=== PATIENT | male | born 1985 | race African-American/Black ===

== ENCOUNTER 2018-05-08 21:45 | Emergency (ER) | payer OTHER, SELFPAY ==
[2018-05-08 21:53] VITALS: BP 153/87; PULSE 130; RESP 20; TEMP 37.1; O2SAT 97
[2018-05-08 22:52] VITALS: BP 153/87; PULSE 130; RESP 20; TEMP 37.1; O2SAT 97
[2018-05-08 23:24] VITALS: BP 128/71; PULSE 125; RESP 20; TEMP 39.5; O2SAT 96
[2018-05-08 23:42] VITALS: TEMP 39.5
[2018-05-08] MEDS: KETOROLAC 60 MG/2 ML VIAL IM (23:42)
[2018-05-08] MEDS: ACETAMINOPHEN 325 MG TABLET 975 MG PO (23:42)
--- NOTE | 2018-05-08 23:46 | ED_ITS ---
HPI - Fever General Chief Complaint: Fever Stated Complaint: STATES FLU LIKE SYMPTOMS Time Seen by Provider: 05/08/18 23:33 Source: patient Mode of arrival: ambulatory Limitations: no limitations History of Present Illness HPI Narrative: Patient is a 32-year-old male who presents with fever. He says he started with body aches and shortness of breath at 6:30 a.m. last night. He has body aches and fever have gotten worse today. He is influenza positive. He denies abdominal pain nausea or vomiting. He denies any recent travel. MD complaint: fever Associated symptoms: chills, rigors and myalgias Relieving factors: nothing Related Data Allergies Allergy/AdvReac Type Severity Reaction Status Date / Time amoxicillin Allergy Verified 05/08/18 21:57 Review of Systems Review of Systems GENERAL: + fever,+ body aches, HEENT: Denies sinus pain, ear pain, sore throat, difficulty swallowing, neck pain RESPIRATORY: Denies dyspnea, cough, wheezing, hemoptysis, sputum. CARDIOVASCULAR: Denies chest pain, palpitations, orthopnea, edema GASTROINTESTINAL: Denies nausea, vomiting, abdominal pain, diarrhea, constipation, melena. : Denies dysuria, frequency, incontinence, hematuria, urinary retention, flank pain. MUSCULOSKELETAL: Denies weakness, joint pain, or bony pain SKIN: No rash, no erythema, no pruritus NEUROLOGIC: Denies weakness, dizziness, headache, numbness, change in speech, confusion PSYCHIATRIC: No concerning psychosocial issues. 12 point review of systems is negative except for those stated above and HPI PFSH Medical History Healthy adult (Acute) Social History Smoking Status: Current some day smoker Exam Initial Vital Signs Initial Vital Signs: Vital Signs Temperature 98.8 F 05/08/18 21:53 Pulse Rate 130 H 05/08/18 21:53 Respiratory Rate 20 05/08/18 21:53 Blood Pressure 153/87 H 05/08/18 21:53 Pulse Oximetry 97 05/08/18 21:53 GENERAL: Patient appears weak a not feeling well HEENT: Head atraumatic,EOMI, pupils reactive, neck is supple no meningeal signs CARDIOVASCULAR: Tachycardic regular no murmur RESPIRATORY: Breath sounds equal bilaterally, no wheezes rales or rhonchi. Coughing with deep breathing no respiratory distress full sentences ABDOMEN: Soft, nontender. Normoactive bowel sounds all 4 quadrants. No guarding or rebound. EXTREMITIES: Normal range of motion, no clubbing or edema. Neurovascularly intact NEUROLOGICAL: Alert and oriented x4.Normal gait and speech. Cranial nerves II through XII grossly intact. SKIN: Warm, dry, no laceration, no petechiae, no rashes or lesions. Course Orders Ordered: ED Orders 05/08/18 22:00 Influenza A and B by PCR Rapid Stat Discontinued Medications Acetaminophen (Tylenol) 975 mg PO NOW ONE Stop: 05/08/18 23:41 Last Admin: 05/08/18 23:42 Dose: 975 mg Ketorolac Tromethamine (Toradol) 60 mg IM NOW ONE Stop: 05/08/18 23:41 Last Admin: 05/08/18 23:42 Dose: 60 mg Vital Signs - 8 hr 05/08/18 21:53 05/08/18 22:52 05/08/18 23:24 Temperature 98.8 F 98.8 F 103.1 F H Pulse Rate 130 H 130 H 125 H Respiratory Rate 20 20 20 Blood Pressure 153/87 H 153/87 H Blood Pressure [Left Arm] 128/71 Pulse Oximetry 97 97 96 05/08/18 23:42 05/09/18 00:43 05/09/18 00:52 Temperature 103.1 F H 101.7 F H 101.3 F H Pulse Rate 114 H Respiratory Rate 20 Blood Pressure Blood Pressure [Left Arm] 123/68 Pulse Oximetry 99 MDM - Fever Lab Data Attestation: I reviewed the patient's lab results. Lab Results 05/08/18 Range/Units 22:00 Influenza A & B (PCR) Positive, type a A (Negative) [facility] Narrative Medical decision making narrative: Patient is influenza positive. At this time no signs or symptoms to suggest that he needs further workup. His fever is has started coming down he is sweating. He is tolerating oral fluids. Heart rate is much improved. He has no signs of respiratory distress. I discussed all findings with the patient and spouse, Education has been performed regarding treatment plan, diagnosis, warning signs and symptoms and all concerns have been addressed. Verbally agree with and understood all of the above. Discharge Plan Departure Patient Disposition: Home Clinical Impression: Influenza Discharge Date/Time: 05/09/18 00:47 Interventions: ED Discharge Assessment Last Done: 05/09/18 00:51 Instructions: DI for Influenza -- Adult Activity Restrictions/Additional Instructions: *You have been diagnosed with influenza a *What to do: Hydrate with Gatorade or Gatorade like substance, fever control, rest *Continue to take medications as directed Motrin 800 mg every 8 hr if needed for pain and fever Tylenol 1000 mg every 6 hr or 650 mg every 4 hr if needed for pain or fever *Follow up with your primary care provider in 2-3 days *Return to ER if you should have difficulty breathing, decreased oral intake, increased shortness of breath or any new, worsening or concerning symptoms Referrals: [facility] [Provider Group] Stand Alone Forms: Work Release Note
[2018-05-09 00:43] VITALS: BP 123/68; PULSE 114; RESP 20; TEMP 38.7; O2SAT 99
[2018-05-09 00:52] VITALS: TEMP 38.5
== END 2018-05-09 00:47 | disposition home or self-care (01) ==
PROVIDERS: Emergency Provider Emergency Medicine
DX: J11.1 Influenza due to unidentified influenza virus with other respiratory manifestations (principal)
CPT/HCPCS: 87400; 96372; 99282; 99283; J1885